=== PATIENT | male | born 1975 | race Caucasian/White ===

== ENCOUNTER → 2018-03-08 14:52 | Outpatient (CLI) | payer BC, SELFPAY ==
--- NOTE | 2018-03-08 14:57 | CT_ITS ---
STUDY: CT FACIAL BONES WITHOUT CONTRAST REASON FOR EXAM: Male, 42 years old. Sinusitis RADIATION DOSAGE (If Supplied By Facility): CTDIvol = ( 33.45 ) mGy, DLP = ( 855.81 ) mGycm TECHNIQUE: The patient was scanned in a multi detector CT scanner. Sagittal and coronal images were reconstructed. Individualized dose optimization techniques were used for this CT. COMPARISON: None. FINDINGS: Normal soft tissue structures. Normal orbital swain and orbital contents. Normal nasal bones and anterior nasal spine. Normal facial bones. There is no demonstrated fracture. Normal visualized paranasal sinuses. CT/Sinus/Facial Bone IMPRESSION: Normal unenhanced CT of the facial bones. Electronically Signed: Edgard Ford MD at 18:41 EST , Service support ,
== END ==
PROVIDERS: Family Provider Family Medicine; PCP Family Medicine; Referring Provider Otolaryngology; Visit Provider Otolaryngology
DX: J32.9 Chronic sinusitis, unspecified (principal)
CPT/HCPCS: 70486

== ENCOUNTER 2022-02-27 06:23 | Emergency (ER) | payer BC, SELFPAY ==
[2022-02-27 06:24] VITALS: BP 155/97; PULSE 101; RESP 18; TEMP 36.2; O2SAT 94; O2SAT 95; BMI 29.1
--- NOTE | 2022-02-27 06:32 | EDS_ITS ---
HPI HPI - URI History of Present Illness Chief Complaint: Cough Informant: patient Onset/Context/Timing Onset: Today Context: Sudden Onset Timing: Continuous Quality: Bloody Location: Sputum Worsened by: - (Nothing) Relieved by: - (Nothing) Associated Symptoms Associated Symptoms: Positive for Hemoptysis; Negative for Nasal Congestion, Headache, Sinus Pressure, Myalgias, Nausea, Vomiting, Diarrhea, Shortness of Breath or Chest Pain Narrative Narrative: Patient presents with hemoptysis that began this morning. Patient states he was walking into work and felt like he needed to cough. Patient states he coughed something up and spit it out. Patient noticed it was bloody. Patient denies any chest pain or shortness of breath. Patient denies any headaches, sore throat, rhinorrhea. Patient states he has a history of sarcoidosis. Patient denies any nausea, vomiting, or diarrhea. ROS ROS ED Constitutional Constitutional ED: Denies chills or fever(s) Eyes Eyes: Denies blurry vision or change in vision ENT ENT ED: Denies rhinorrhea or sore throat Cardiovascular Cardiovascular: Denies chest pain or palpitations Respiratory/Chest Respiratory/Chest: Reports cough; Denies dyspnea Gastrointestinal Gastrointestinal: Denies nausea or vomiting Genitourinary Genitourinary ED: Denies dysuria or hematuria Musculoskeletal Musculoskeletal: Denies back pain or neck pain Integumentary Denies abscess or rash Neurologic Neurologic: Denies headache(s) or weakness Allergic/Immunologic Allergic/Immunologic ED: Denies mouth swelling or urticaria [facility] Medical History Pulmonary sarcoidosis Home Medications azathioprine 50 mg tablet 100 mg PO DAILY@0800 09/27/13 [History Last Taken 08/29/14] fluticasone 100 mcg-salmeterol 50 mcg/dose blistr powdr for inhalation (Advair Diskus) 1 puff inhalation BID 08/29/14 [History Last Taken 08/29/14] Valacyclovir Hcl [Valtrex] 1,000 mg PO DAILY 02/01/15 [History Last Taken Unknown] infliximab 100 mg intravenous solution (Remicade) 450 mg IV QMONTH 02/01/15 [History Last Taken Unknown] albuterol sulfate 90 mcg/actuation aerosol inhaler (Ventolin HFA) 1 puff inhalation Q4H PRN PRN Wheezing 09/20/15 [History Last Taken Unknown] cyclobenzaprine 10 mg tablet 10 mg PO TID PRN Muscle Spasm ##20 04/10/16 [Rx Last Taken Unknown] Azithromycin [Zithromax Z-Dom] 250 mg PO UD ##1 05/07/16 [Rx Last Taken Unknown] sulfamethoxazole 800 mg-trimethoprim 160 mg tablet 1 tab PO QWEEK 05/07/16 [History Last Taken Unknown] Allergy/AdvReac Type Severity Reaction Status Date / Time No Known Allergies Allergy Verified 02/27/22 06:32 Surgical History History of appendectomy History of lung biopsy Hx of tonsillectomy Social History Smoking Status: Never smoker EXAM Physical Exam Const Vital Signs: 02/27/22 06:24 02/27/22 06:24 Temperature 97.2 F L Temperature Source Temporal Pulse Rate 101 H Respiratory Rate 18 Respiratory Effort Normal Respiratory Depth Normal Respiratory Pattern Normal Blood Pressure 155/97 H Blood Pressure Mean 116 Pulse Ox 94 Oxygen Delivery Method Room Air Room Air Positive well nourished and well developed General Appearance ED: well developed and NAD HEENT Reports moist mucous membranes Neck supple and no JVD Resp normal respiratory effort and clear to auscultation bilaterally Cardio regular rate, regular rhythm and no murmurs GI normal to inspection, nondistended, normoactive bowel sounds and non-tender Palpation: soft Extremity normal to inspection General Extremety ED: Negative for edema or tenderness General Extremity: Negative for edema Neuro oriented x3, CN's II-XII intact bilaterally and no sensory deficits noted Sensorium / Orientation: alert Motor Exam: strength 5/5 throughout Psych mental status grossly normal Skin no rashes or lesions noted MDM MDM MDM Narrative Medical decision making narrative: PA and lateral chest x-ray was obtained. There are 2 views. On my interpretation, there is bilateral perihilar chronic changes. There is no acute infiltrate. Radiologist also interpreted the x-rays and agrees. CBC was within normal limits. PT with INR and PTT were ordered and are within normal limits. Comprehensive metabolic profile was ordered and is within normal limits. COVID- 19 rapid antigen was obtained and is pending. Influenza A and influenza B antigens were obtained and are pending. Care of the patient was turned over to the oncoming physician. Lab Data Attestation: I reviewed the patient's lab results. Labs: Laboratory Results - last 24 hr 02/27/22 02/27/22 02/27/22 06:45 06:45 06:45 WBC 5.1 RBC 5.18 Hgb 15.5 Hct 47.1 MCV 90.9 MCH 29.9 MCHC 32.9 RDW Std Deviation 41.6 RDW Coeff of Hilary 12.6 Plt Count 160 MPV 9.2 Immature Gran % (Auto) 0.600 Neut % (Auto) 50.4 Lymph % (Auto) 35.4 Cloud % (Auto) 10.4 H Eos % (Auto) 2.8 Baso % (Auto) 0.4 Absolute Neuts (auto) 2.6 Absolute Lymphs (auto) 1.80 Nucleated RBC % 0 PT 12.7 INR 1.0 APTT 32.1 Sodium 138 Potassium 4.3 Chloride 106 Carbon Dioxide 27.0 Anion Gap 5 BUN 18 Creatinine 1.05 Estim Creat Clear Calc 95.46 Est GFR (MDRD) Af Amer 97 Est GFR (MDRD) Non-Af 80 BUN/Creatinine Ratio 17.1 Glucose 130 H Calcium 9.0 Total Bilirubin 0.70 AST 24 ALT 43 Alkaline Phosphatase 46 Total Protein 7.7 Albumin 3.8 Globulin 3.9 Albumin/Globulin Ratio 1.0 Radiography Chest X-Ray - ED: 2 View, Read by ED Physician, Read by Radiologist, No Acute Disease and Chronic Changes Diagnostic Testing: Clinical Impression(s) from Imaging Studies Chest X-Ray 02/27/22 06:35 IMPRESSION: Stable bilateral coarse perihilar opacities. No acute abnormality. Electronically Signed: Abrahan Muñoz MD at 7:19 EST , Discharge Plan Triage Chief Complaint: Cough ED Provider: Tacos Mensah Dx/Rx/DC Orders Clinical Impression: Hemoptysis, Sarcoidosis of lung Prescriptions: No Action azathioprine 50 MG tablet 100 mg PO DAILY@0800 fluticasone propion-salmeterol [Advair Diskus] 1 PUFF inhaler 1 puff inhalation BID infliximab [Remicade] 100 MG/10 ML Vial 450 mg IV QMONTH Valacyclovir Hcl [Valtrex] 1,000 MG tablet 1,000 mg PO DAILY albuterol sulfate [Ventolin HFA] 1 INHALER inhaler 1 puff inhalation Q4H PRN PRN (Reason: Wheezing) cyclobenzaprine 10 MG tablet 10 mg PO TID PRN (Reason: Muscle Spasm) Qty: 20 0RF sulfamethoxazole-trimethoprim 1 TABLET tablet 1 tab PO QWEEK Label Comments: three times weekly mon, wed, fri only Azithromycin [Zithromax Z-Dom] 250 MG tablet 250 mg PO UD Qty: 1 0RF Rx Instructions: TAKE 2 TABLETS 1ST DAY THEN 1 TABLET DAILY FOR NEXT 4 DAYS. Primary Care Provider: Zeyad Doss Referrals: Zeyad Doss MD [Primary Care Provider] -
--- NOTE | 2022-02-27 06:35 | RAD_ITS ---
EXAM: XR CHEST, 2 VIEWS CLINICAL INDICATION: Hemoptysis. Known history of sarcoidosis. TECHNIQUE: Frontal and lateral views of the chest. This report was created using [employer] report generation technology. COMPARISON: 05/07/2016. FINDINGS: LUNGS AND PLEURAL SPACES: Stable bilateral coarse perihilar opacities. No pneumothorax. No effusion. HEART: Unremarkable. Cardiac silhouette not enlarged. MEDIASTINUM: Central airways and mediastinal contour are unremarkable. BONES/JOINTS: Unremarkable. SOFT TISSUES: Unremarkable. RAD/Chest PA and Lateral IMPRESSION: Stable bilateral coarse perihilar opacities. No acute abnormality. Electronically Signed: Abrahan Muñoz MD at 7:19 EST ,
[2022-02-27 07:10] LABS: Absolute Neutrophil Count 2.6 X10^3/uL (2.0-7.7); Basophil# 0.02 X10^3/uL; Basophil% 0.4 % (0-1); Eosinophil# 0.14 X10^3/uL; Eosinophils% 2.8 % (0-5); Hematocrit 47.1 % (40-54); Hemoglobin 15.5 g/dL (13.0-16.5); Lymphocyte % 35.4 % (19-41); Mean Corp Hgb Conc 32.9 g/dL (32-36); Mean Corpuscular Hgb 29.9 pg (27.0-32.0); Mean Corpuscular Volume 90.9 fL (80-94); Mean Platelet Vol. 9.2 fl (6.2-12.0); Monocyte# 0.53 X10^3/uL; Monocyte% 10.4 % (0-10); NRBC Flagged by Analyzer 0 % (0-5); Neutrophil # 2.57 X10^3/uL (2.7-7.7); Neutrophil % 50.4 % (47-70); Platelet Count 160 K/mm3 (150-450); RBC Distribution Width CV 12.6 % (11.6-14.6); RBC Distribution Width SD 41.6 fl (35.1-43.9); Red Blood Count 5.18 M/mm3 (4.6-6.2); White Blood Count 5.1 K/mm3 (4.4-11.0)
[2022-02-27 07:20] LABS: AST(SGOT) 24 U/L (15-37); Alanine Aminotransfer ALT/SGPT 43 U/L (16-61); Albumin, Serum 3.8 g/dL (3.2-5.0); Alkaline Phosphatase 46 U/L (45-117); Anion Gap 5 (5-15); BUN 18 mg/dL (7-18); BUN/Creat Ratio 17.1 RATIO (10-20); Chloride 106 mmol/L (98-107); Creatinine, Serum 1.05 mg/dL (0.70-1.30); EST Glomerular Filtration Rate 80 mL/min (>60); Est Glom Filt Rate - Afr Amer 97 mL/min (>60); Estimated Creatinine Clearance 95.46 ml/min; Globulin 3.9 g/dL (2.2-4.2); Glucose 130 mg/dL (74-106); Potassium 4.3 mmol/L (3.5-5.1); Protein, Total 7.7 g/dL (6.4-8.2); Sodium Level 138 mmol/L (136-145)
[2022-02-27 07:21] LABS: Prothrombin Time (Protime)PT. 12.7 SECONDS (11.7-14.9)
[2022-02-27 07:22] LABS: Partial Thromboplast Time 32.1 Seconds (24.1-36.2)
[2022-02-27 08:00] VITALS: BP 129/87; PULSE 87; RESP 16; O2SAT 98
== END 2022-02-27 08:01 | disposition home or self-care (01) ==
PROVIDERS: Emergency Provider Emergency Medicine; PCP Family Medicine; Visit Provider Emergency Medicine
DX: R04.2 Hemoptysis (principal); D86.0 Sarcoidosis of lung; Z20.822 Contact with and (suspected) exposure to COVID-19; Z79.899 Other long term (current) drug therapy
CPT/HCPCS: 71046; 80053; 85025; 85610; 85730; 87428; 99283

== ENCOUNTER 2024-12-02 09:06 | Day surgery (SDC) | payer BC, SELFPAY ==
--- NOTE | 2024-12-01 14:44 | PAT.ANE_ITS ---
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 When Was Last Pacemaker Check QUESTION #4 FULL TEXT: You/Your Family Experience fever (hyperthermia) with Anesthesia Last Oral Intake Last Oral intake: Last Oral Intake NPO since Meds taken in AM with sips of water? Meds patient instructed to take am of surgery PONV PONV - hat presser: PONV - hat presser Female No 11/29/24 12:09 HX of Motion Sickness No 11/29/24 12:09 HX of N/V After Surgery No 11/29/24 12:09 Non-Smoker Yes 11/29/24 12:09 Duration of Surgery greater No 11/29/24 12:09 than 60 minutes Number of Risk Factors 1 11/29/24 12:09 PONV Score Low Risk 11/29/24 12:09 Height & Weight Height & Weight: Anesthesia: Height & Weight Height 6 ft 02/27/22 06:24 Respiratory Assessment Respiratory Assessment - hat presser: Respiratory Tract Infection Hx - hat presser Hx Respiratory Tract Infection No 11/29/24 12:09 STOP Sleep Apnea STOP Sleep Apnea - hat presser: STOP Sleep Apnea - hat presser Hx Hypertension No 11/29/24 12:09 Hx Sleep Apnea No 11/29/24 12:09 CPAP BIPAP Do you snore loudly (louder No 11/29/24 12:09 than talking or can be heard Do you often feel tired/ No 11/29/24 12:09 fatigued/ sleepy during daytime? Has anyone observed you stop No 11/29/24 12:09 breathing during sleep? STOP Results Negative 11/29/24 12:09 QUESTION #5 FULL TEXT : Do you snore loudly (louder than talking or can be heard through closed doors)? 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 Specify any problems Hx of Preganancy in last 3 N/A 11/29/24 12:09 Months Nurse Filling Out Transfusion [facility] 11/29/24 12:09 & Questions: Date: 11/29/24 11/29/24 12:09 Time: 12:10 11/29/24 12:09 Patient unable to answer at this time (ie. confused, unrespo /Reproduction History /Reproductive History - hat presser: /Reproductive Hx- hat presser Hx Now No 11/29/24 12:09 Gestational Age (in weeks): EDC: Hx Hx Para Hx Section SAB No 11/29/24 12:09 [facility] Medical History (Updated 12/01/24 @ 10:07 by Bhavya Bangura) Anxiety Former smoker History of echocardiogram Pulmonary sarcoidosis Home Medications ?Medication ?Instructions ?Recorded ?Last Taken ?Type azathioprine 50 mg tablet 100 mg PO QHS 09/27/1308/29 History albuterol sulfate 90 mcg/actuation 1 puff inhalation Q 4H PRN PRN 09/20/15 Unknown History aerosol inhaler (Ventolin HFA) Wheezing alprazolam 0.5 mg tablet 0.5 mg PO TID PRN PRN anxiet y 11/29/24 Unknown History budesonide 0.5 mg/2 mL suspension 1 mg inhalation QHS 11/29/24 Unknown History for nebulization formoterol fumarate 20 mcg/2 mL 2 ml inhalation QHS Unknown History solution for nebulization prednisone 2.5 mg tablet 2.5 mg PO QODAY 11/29/24 Unk nown History Allergy/AdvReac Type Severity Reaction Status Date / Time No Known Allergies Allergy Verified 11/29/24 12:06 Surgical History Hx of tonsillectomy History of appendectomy History of lung biopsy Social History Smoking Status: Former smoker Audit: Pertinent Findings Pertinent Findings Echo (EF%) pertinent findings: March 13, 2022. EF is 65%. No significant valvular abnormalities. Recommendation Anesthesia Recommendation Anesthesia recommendation: OPTIMIZED for anesthesia
[2024-12-02] VITALS (8 sets, daily range): BP systolic 123–152; BP diastolic 80–93; PULSE 70–77; RESP 6–16; TEMP 36.2–36.8; O2SAT 98–100; BMI 27.0
[2024-12-02] MEDS: Lactated Ringers 1,000 ML 15 ML IV (09:43)
--- NOTE | 2024-12-02 09:53 | PRE.ANES_ITS ---
ASA Classification* ASA Classification ASA Classification: 2 Assessment & Plan Anesthesia* Anesthesia Assessment Anesthesia Assessment: Discussed sedation and/or anesthesia options, risks, benefits, and alternatives with patient/parents/legal guardian/POA. Questions invited. The patient/parents/legal guardian/POA seems to understand and agrees to proceed with anesthesia plan. Reviewed the physical assessment, medical history, allergy history and patient home medications list prior to surgery/procedure/anesthetic and documented any changes. Performed airway and anesthesia risk assessments. Anesthesia Type Anesthesia Type: MAC History Source History Obtained from:: Patient and Chart Anesthesia Focused Assessment* Temperature: 97.7 F Pulse Rate: 75 Blood Pressure: 152/93 Respiratory Rate: 6 Pulse Ox: 100 Oxygen Delivery Method: Room Air Airway Assessment Mouth opens: >3 cm Mallampati Score: II Teeth Condition: Intact Neck Range of motion (ROM): Full ROM Labs Anesthesia Preop lab: CBC WBC, (4.4-11.0) 5.1 K/mm3 02/27/22, 06:45 RBC, (4.6-6.2) 5.18 M/mm3 02/27/22, 06:45 Hgb, (13.0-16.5) 15.5 g/dL 02/27/22, 06:45 Hct, (40-54) 47.1 % 02/27/22, 06:45 Plt Count, (150-450) 160 K/mm3 02/27/22, 06:45 CHEMISTRY Potassium, (3.5-5.1) 4.3 mmol/L 02/27/22, 06:45 Sodium, (136-145) 138 mmol/L 02/27/22, 06:45 BUN, (7-18) 18 mg/dL 02/27/22, 06:45 Creatinine, (0.70-1.30) 1.05 mg/dL 02/27/22, 06:45 Glucose, (74-106) 130 mg/dL H 02/27/22, 06:45 COAG PT, (11.7-14.9) 12.7 SECONDS 02/27/22, 06:45 Pre-Assessment Diagnosis/Proposed Procedure Planned Operative Procedure(s): CSCOPE Anesthesia History 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 When Was Last Pacemaker Check QUESTION #4 FULL TEXT: You/Your Family Experience fever (hyperthermia) with Anesthesia Last Oral Intake Last Oral intake: Last Oral Intake NPO since 06:00 12/02/24 09:34 Meds taken in AM with sips of Yes 12/02/24 09:34 water? 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 Female No 11/29/24 12:09 HX of Motion Sickness No 11/29/24 12:09 HX of N/V After Surgery No 11/29/24 12:09 Non-Smoker Yes 11/29/24 12:09 Duration of Surgery greater No 11/29/24 12:09 than 60 minutes Number of Risk Factors 1 11/29/24 12:09 PONV Score Low Risk 11/29/24 12:09 Height & Weight Height & Weight: Anesthesia: Height & Weight Height 6 ft 12/02/24 09:34 Weight: 90.5 kg 12/02/24 09:34 Body Mass Index (BMI) 27.0 12/02/24 09:34 Respiratory Assessment Respiratory Assessment - viscose department worker: Respiratory Tract Infection Hx - viscose department worker Hx Respiratory Tract Infection No 11/29/24 12:09 STOP Sleep Apnea STOP Sleep Apnea - viscose department worker: STOP Sleep Apnea - viscose department worker Hx Hypertension No 11/29/24 12:09 Hx Sleep Apnea No 11/29/24 12:09 CPAP BIPAP Do you snore loudly (louder No 11/29/24 12:09 than talking or can be heard Do you often feel tired/ No 11/29/24 12:09 fatigued/ sleepy during daytime? Has anyone observed you stop No 11/29/24 12:09 breathing during sleep? STOP Results Negative 11/29/24 12:09 QUESTION #5 FULL TEXT : Do you snore loudly (louder than talking or can be heard through closed doors)? 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 Specify any problems Hx of Preganancy in last 3 N/A 11/29/24 12:09 Months Nurse Filling Out Transfusion [facility] 11/29/24 12:09 & Questions: Date: 11/29/24 11/29/24 12:09 Time: 12:10 11/29/24 12:09 Patient unable to answer at this time (ie. confused, unrespo /Reproduction History /Reproductive History - viscose department worker: /Reproductive Hx- viscose department worker Hx Now No 11/29/24 12:09 Gestational Age (in weeks): EDC: Hx Hx Para Hx Section SAB No 11/29/24 12:09 Active Medications Active Medications: Current Medications Generic Name Dose Route Start Last Admin Trade Name Freq PRN Reason Stop Dose Admin Lactated Ringer's 1,000 mls @ 15 mls/hr 12/02/24 09:30 12/02/24 09:43 IV 15 mls/hr .Q48H ERENDIRA Administration PFSH Medical History Anxiety Former smoker History of echocardiogram Pulmonary sarcoidosis Home Medications ?Medication ?Instructions ?Recorded ?Last Taken ?Type azathioprine 50 mg tablet 100 mg PO QHS 09/27/1308/29 History albuterol sulfate 90 mcg/actuation 1 puff inhalation Q 4H PRN PRN 09/20/15 Unknown History aerosol inhaler (Ventolin HFA) Wheezing alprazolam 0.5 mg tablet 0.5 mg PO TID PRN PRN anxiet y 11/29/24 12/02/24 06:00 History budesonide 0.5 mg/2 mL suspension 1 mg inhalation QHS 11/29/24 Unknown History for nebulization formoterol fumarate 20 mcg/2 mL 2 ml inhalation QHS Unknown History solution for nebulization prednisone 2.5 mg tablet 2.5 mg PO QODAY 11/29/24 Unk nown History Allergy/AdvReac Type Severity Reaction Status Date / Time No Known Allergies Allergy Verified 12/02/24 09:33 Surgical History Hx of tonsillectomy History of appendectomy History of lung biopsy Social History Smoking Status: Former smoker Review of Systems (Anesthesia) ROS Narrative System reviewed and no additional complaints, except as documented.
--- NOTE | 2024-12-02 10:15 | COLBX_PTH ---
PATIENT: VENUS SIU LOC: EN U#:[id number] AGE/SX: 49/M ROOM: RE12/02/[address]: Dr. Clifford Werner MD : 1975 BED: DIS: 12/02/2024 SPEC #: [id number] RECD: 12/02/24 12:36 STATUS: STEPHANIE REJhonatan #: [id number] SLOAN: 12/02/24 10:[address]: Clifford Werner DEPT: SURGICAL PATHOLOGY RECD BY: Jonathan Angulo ENTERED: 12/02/24 13:37 SP TYPE: COLON BX OTHR DR: TRUDY Hernandez Tissues: A - Sigmoid colon biopsy B - Sigmoid colon biopsy Procedures: Surgery Specimen Level IV HEADER OPERATION: Colonoscopy PRE-OP DIAGNOSIS: Colon cancer screening TISSUE SUBMITTED: A- Sigmoid polyp biopsy, B- Sigmoid polyp MICROSCOPIC DIAGNOSIS A. Sigmoid colon, polyp, biopsy: * Hyperplastic polyp. B. Sigmoid colon, polyp, biopsy: * Tubular adenoma. MICROSCOPIC DESCRIPTION Slides are reviewed. GROSS DESCRIPTION A. Received in fixative is one container labeled with the patient's name and designated Sigmoid polyp biopsy. The specimen consists of two irregular fragments of field tissue, each measuring 0.4 cm. The specimen is totally submitted in one cassette. B. Received in fixative is one container labeled with the patient's name and designated Sigmoid polyp. The specimen consists of multiple irregular fragments of field tissue that in aggregate measure 1.5 x 0.8 x 0.3 cm. The specimen is totally submitted in one cassette. SD 12/02/2024 CPT:53137z5
--- NOTE | 2024-12-02 10:22 | HP.PCM_ITS ---
HPI - General General Date of Admission: 12/02/24 Date of Service: 12/02/24 Chief Complaint: Screening colonoscopy HPI Narrative VENUS SIU, is a 49 M who presents for screening colonoscopy. He has had no previous colonoscopy. He denies any family history of colon cancers although there are family members with polyps. He himself denies any GI symptoms or problems [facility] Medical History (Updated 12/02/24 @ 10:[address] Clifford Werner MD) Colon cancer screening Anxiety Former smoker History of echocardiogram Pulmonary sarcoidosis Home Medications ?Medication ?Instructions ?Recorded ?Last Taken ?Type azathioprine 50 mg tablet 100 mg PO QHS 09/27/1308/29 History albuterol sulfate 90 mcg/actuation 1 puff inhalation Q 4H PRN PRN 09/20/15 Unknown History aerosol inhaler (Ventolin HFA) Wheezing alprazolam 0.5 mg tablet 0.5 mg PO TID PRN PRN anxiet y 11/29/24 12/02/24 06:00 History budesonide 0.5 mg/2 mL suspension 1 mg inhalation QHS 11/29/24 Unknown History for nebulization formoterol fumarate 20 mcg/2 mL 2 ml inhalation QHS Unknown History solution for nebulization prednisone 2.5 mg tablet 2.5 mg PO QODAY 11/29/24 Unk nown History Allergy/AdvReac Type Severity Reaction Status Date / Time No Known Allergies Allergy Verified 12/02/24 09:33 Surgical History Hx of tonsillectomy History of appendectomy History of lung biopsy Social History Smoking Status: Former smoker Vital Signs Vital Signs Vital Signs: 12/02/24 09:34 12/02/24 09:34 12/02/24 09:55 Temperature 97.7 F L 97.7 F L Temperature Source Temporal Pulse Rate 75 75 Respiratory Rate 6 L 6 L Respiratory Pattern Normal Blood Pressure 152/93 H 152/93 H Blood Pressure Mean 112 Blood Pressure Source Monitor Blood Pressure Position Semi-Fowlers Blood Pressure Location Left Arm Pulse Ox 100 100 Oxygen Delivery Method Room Air Room Air Weight Weight: 199 lb 8.293 oz Body Mass Index (BMI) 27.0 Physical Exam Const alert, oriented x3 and no apparent distress Assessment & Plan Assessment/Plan (1) Colon cancer screening: PLAN: Plan The patient is a 49-year-old male in need of a screening colonoscopy. We discussed the details of the planned procedure including risk benefits and alternatives. He wishes to proceed. This will begin momentarily
--- NOTE | 2024-12-02 10:24 | PCM.POST.ANE ---
Anesthesia: Postop Eval I Current Vital Signs Temperature: 98.3 F Pulse Rate: 72 Blood Pressure: 125/85 Respiratory Rate: 14 Pulse Ox: 98 Oxygen Delivery Method: Room Air Assessment Airway patent: Yes Spontaneous unlabored respirations: Yes Mental status: Awake nausea: No Vomiting: No Anesthesia Complication: No Fluid Hydration Crystalloid volume administer (ml): 500 Total IV fluid infused: 500 Progress Note Anesthesia document: Postop Eval 1 completed: Yes
[2024-12-02] MEDS: Lactated Ringers 500 ML IV (10:30)
--- NOTE | 2024-12-02 11:01 | OP.COLON_ITS ---
Patient Name: Edgard Sandoval Procedure Date: 12/02/2024 10:20 AM Date of : 1975 Age: 49 Procedure: Colonoscopy Indications: Colon cancer screening in patient at increased risk: Family history of 1st-degree relative with colon polyps Providers: Clifford Werner MD Referring MD: Salvatore Hernandez Medicines: Monitored Anesthesia Care Patient Profile: Refer to note in patient chart for documentation of history and physical. Last Colonoscopy: none. The patient's first colonoscopy is today. Complications: No immediate complications. Estimated blood loss: Minimal. Procedure: Pre-Anesthesia Assessment: - Prior to the procedure, a History and Physical was performed, and patient medications and allergies were reviewed. The patient's tolerance of previous anesthesia was also reviewed. The risks and benefits of the procedure and the sedation options and risks were discussed with the patient. All questions were answered, and informed consent was obtained. Prior Anticoagulants: The patient has taken no anticoagulant or antiplatelet agents. ASA Grade Assessment: II - A patient with mild systemic disease. After reviewing the risks and benefits, the patient was deemed in satisfactory condition to undergo the procedure. After I obtained informed consent, the scope was passed under direct vision. Throughout the procedure, the patient's blood pressure, pulse, and oxygen saturations were monitored continuously. The colonoscope was introduced through the anus and advanced to the cecum, identified by appendiceal orifice and ileocecal valve. The ileocecal valve, appendiceal orifice, and rectum were photographed. The entire colon was well visualized. The colonoscopy was performed without difficulty. The patient tolerated the procedure well. The quality of the bowel preparation was adequate. Moderate Sedation: See the other procedure note for documentation of moderate sedation with intraservice time. Scope In: 10:32:35 AM Scope Withdrawal Time 0 hours 13 minutes 9 seconds Scope Out: 10:51:37 AM Total Procedure Duration Time 0 hours 19 minutes 2 seconds Findings: The perianal and digital rectal examinations were normal. A few small-mouthed diverticula were found in the sigmoid colon. A 2 mm polyp was found in the sigmoid colon. The polyp was semi-sessile. The polyp was removed with a cold biopsy forceps. Resection and retrieval were complete. Verification of patient identification for the specimen was done by the nurse using the patient's name, date and medical record number. Estimated blood loss was minimal. A 6 mm polyp was found in the sigmoid colon. The polyp was pedunculated. The polyp was removed with a hot snare. Resection and retrieval were complete. Verification of patient identification for the specimen was done by the nurse using the patient's name, date and medical record number. Estimated blood loss: none. Hemorrhoids were found during retroflexion. The hemorrhoids were moderate. The exam was otherwise without abnormality on direct and retroflexion views. Impression: - Diverticulosis in the sigmoid colon. - One 2 mm polyp in the sigmoid colon, removed with a cold biopsy forceps. Resected and retrieved. - One 6 mm polyp in the sigmoid colon, removed with a hot snare. Resected and retrieved. - Hemorrhoids. - The examination was otherwise normal on direct and retroflexion views. Recommendation: - Discharge patient to home (ambulatory). - High fiber diet. - Repeat colonoscopy in 5 years for surveillance. - Return to my office PRN. - Continue present medications. Procedure Code(s): --- Professional --- 96354, Colonoscopy, flexible; with removal of tumor(s), polyp(s), or other lesion(s) by snare technique 60765, 59, Colonoscopy, flexible; with biopsy, single or multiple Diagnosis Code(s): --- Professional --- Z83.71, Family history of colonic polyps K64.9, Unspecified hemorrhoids K57.30, Diverticulosis of large intestine without perforation or abscess without bleeding D12.5, Benign neoplasm of sigmoid colon CPT copyright 2021 [employer]. All rights reserved. The codes documented in this report are preliminary and upon farm helper review may be revised to meet current compliance requirements. Clifford Werner MD 12/02/2024 11:00:56 AM This report has been signed electronically. Number of Addenda: 0 Note Initiated On: 12/02/2024 10:20 AM
--- NOTE | 2024-12-02 11:01 | OP.PROVAT_ITS ---
12/02/2024 Salvatore Hernandez Re : Colonoscopy procedure for Edgard Sandoval Dear [place] This procedure was performed on Monday, December 02, 2024. My impressions and recommendations are as follows: Impressions : - Diverticulosis in the sigmoid colon. - One 2 mm polyp in the sigmoid colon, removed with a cold biopsy forceps. Resected and retrieved. - One 6 mm polyp in the sigmoid colon, removed with a hot snare. Resected and retrieved. - Hemorrhoids. - The examination was otherwise normal on direct and retroflexion views. Recommendations : - Discharge patient to home (ambulatory). - High fiber diet. - Repeat colonoscopy in 5 years for surveillance. - Return to my office PRN. - Continue present medications. My findings are described in the full procedure note, which is enclosed. If I can be of further assistance, please feel free to contact me at . Sincerely, Clifford Werner MD 12/02/2024 11:00:56 AM This report has been signed electronically.
--- NOTE | 2024-12-02 15:07 | POSTOPAN2_ITS ---
Anesthesia Postop Eval I Sum Postop Eval Completion status Anesthesia document: Postop Eval 1 completed: Yes Anesthesia Postop Eval I Summary Anesthesia Postop Eval I Summary: Anesthesia Postop Eval I: Assessment Summary Airway patent Yes 12/02/24 10:25 [email or web address] Spontaneous unlabored Yes 12/02/24 10:25 [email or web address] respirations Mental status Awake 12/02/24 10:25 [email or web address] nausea No 12/02/24 10:25 [email or web address] Vomiting No 12/02/24 10:25 [email or web address] Anesthesia Postop Eval I: Fluid Summary Crystalloid volume administer 500 12/02/24 10:25 [email or web address] (ml) Colloids volume administered ( ml) Blood Product volume administered (ml) Total IV fluid infused 500 12/02/24 10:25 [email or web address] Anesthesia Postop Eval I: Summary Notes Anesthesia Complication No 12/02/24 10:25 [email or web address] Anesthesia Complication Comment: Post-operative progress note Anesthesia: Postop Eval II Evaluation Mental status: Awake and Calm Pain Level: 1 nausea: No Vomiting: No Complications Anesthesia Complication: No
--- NOTE | 2024-12-02 15:07 | PCM.POSTANE2 ---
Anesthesia Postop Eval I Sum Postop Eval Completion status Anesthesia document: Postop Eval 1 completed: Yes Anesthesia Postop Eval I Summary Anesthesia Postop Eval I Summary: Anesthesia Postop Eval I: Assessment Summary Airway patent Yes 12/02/24 10:25 [email or web address] Spontaneous unlabored Yes 12/02/24 10:25 [email or web address] respirations Mental status Awake 12/02/24 10:25 [email or web address] nausea No 12/02/24 10:25 [email or web address] Vomiting No 12/02/24 10:25 [email or web address] Anesthesia Postop Eval I: Fluid Summary Crystalloid volume administer 500 12/02/24 10:25 [email or web address] (ml) Colloids volume administered ( ml) Blood Product volume administered (ml) Total IV fluid infused 500 12/02/24 10:25 [email or web address] Anesthesia Postop Eval I: Summary Notes Anesthesia Complication No 12/02/24 10:25 [email or web address] Anesthesia Complication Comment: Post-operative progress note Anesthesia: Postop Eval II Evaluation Mental status: Awake and Calm Pain Level: 1 nausea: No Vomiting: No Complications Anesthesia Complication: No
== END 2024-12-02 11:35 | disposition home or self-care (01) ==
LOC: EN 09:08 → AC 09:10
PROVIDERS: PCP Physician Assistant; Referring Provider Physician Assistant; Visit Provider Surgery
PROC: 0DJD8ZZ Inspection of Lower Intestinal Tract, Via Natural or Artificial Opening Endoscopic (ICD-10-PCS; CPT 45378; principal; 2024-12-02 10:10)
DX: Z12.11 Encounter for screening for malignant neoplasm of colon (principal); K64.9 Unspecified hemorrhoids; K57.30 Diverticulosis of large intestine without perforation or abscess without bleeding; Z87.891 Personal history of nicotine dependence; Z83.719 Family history of colon polyps, unspecified; F41.9 Anxiety disorder, unspecified; Z79.899 Other long term (current) drug therapy; Z90.49 Acquired absence of other specified parts of digestive tract; K63.5 Polyp of colon
CPT/HCPCS: 45385; 45380; 88305

== ENCOUNTER → 2025-01-03 | Outpatient (CLI) | payer BC, SELFPAY ==
--- NOTE | 2025-01-03 13:22 | MRI_ITS ---
EXAM: MRI/Pelvis W/WO Contrast
== END | disposition home or self-care (01) ==
LOC: OPMRI 13:17
PROVIDERS: PCP Physician Assistant; Referring Provider Urology; Visit Provider Urology
DX: R97.20 Elevated prostate specific antigen [PSA] (principal)
CPT/HCPCS: 72197; A9575; A4216